=== PATIENT | female | born 1960 | race Caucasian/White ===

== ENCOUNTER 2017-04-30 13:19 | Emergency (ER) | payer MEDICARE ==
--- NOTE | ~2017-04-30 | CR127 ---
[facility] A Service of [facility] & [facility] RADIOLOGY TEXT RESULTS PATIENT: ANUSHKA HEALY LOCATION: [facility] : 58 UNIT #: [id number] AGE: [address]: Claudia Steiner SEX: F ORDER DR: [id number] [facility] [address] [place], [place] [address] [id number] E MR#: [id number] Acc #: [id number] NAME: ANUSHKA HEALY. : 1960 SEX: F STUDY DATE/TIME: 04/30/2017 14:54 UNIT: [facility] ROOM: STUDY DESCRIPTION: CR Foot Complete Min 3 View Rt Attending Physician: Claudia Steiner P.A.-C. Ordering Physician: Claudia Steiner P.A.-C. Primary Care Physician: Brigid Kumar M.D. MEDICAL IMAGING REPORT This report is preliminary unless electronic signature is present EXAM Right foot, 3 views COMPARISON None INDICATIONS 57-year-old female with right foot pain and swelling after dropping a 5-pound bag of ice on her right foot today. 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 There is severe enthesopathy of both poles of the calcaneal tubercle with a large intrasubstance ossicle of the distal Achilles insertion measuring up to 2.4 cm. The bones are anatomically aligned. There is mild enthesopathy at the lateral malleolus. There is no evidence of acute fracture. IMPRESSION 1. No acute fracture or dislocation. 2. Severe calcaneal enthesopathy with a large intrasubstance ossicle within the Achilles tendon near its insertion on the calcaneus. This measures up to 2.3 cm. Surgical anchor is also noted in the calcaneus. 3. Findings most consistent with tarsal coalition. Dictated by... Ac Ram M.D. THIS IS AN ELECTRONICALLY VERIFIED REPORT Ac Ram M.D. at 05/08/2017 10:30 PM [facility]/psc [facility]. [facility] A Service of [facility] & [facility] RADIOLOGY TEXT RESULTS PATIENT: ANUSHKA HEALY [id number] 58 UNIT #: [id number] AGE: [address]: Claudia Steiner SEX: F ORDER DR: TD: 04/30/2017 22:30 JOB #: [id number] MEDICAL IMAGING REPORT Page 1 of 1 COPY
== END 2017-04-30 15:49 | disposition home or self-care (01) ==
LOC: CED 13:19
DX: S97.81XA Crushing injury of right foot, initial encounter (principal); K21.9 Gastro-esophageal reflux disease without esophagitis; I10 Essential (primary) hypertension; W20.8XXA Other cause of strike by thrown, projected or falling object, initial encounter; Y92.009 Unspecified place in unspecified non-institutional (private) residence as the place of occurrence of the external cause
CPT/HCPCS: 29515; 73630; 99283